=== PATIENT | female | born 1995 | race Caucasian/White ===

== ENCOUNTER 2021-11-27 12:17 | Outpatient (CLI) | payer OTHER | END 2021-11-27 12:44 | disposition home or self-care (01) | LOC: LAB 12:17 | DX: E06.3 Autoimmune thyroiditis (principal); U07.1 COVID-19; N39.0 Urinary tract infection, site not specified; J12.82 Pneumonia due to coronavirus disease 2019; Z11.52 Encounter for screening for COVID-19; Z20.822 Contact with and (suspected) exposure to COVID-19; D64.9 Anemia, unspecified; E78.2 Mixed hyperlipidemia; E03.9 Hypothyroidism, unspecified; E11.9 Type 2 diabetes mellitus without complications; E55.9 Vitamin D deficiency, unspecified ==

== ENCOUNTER 2021-12-16 07:53 | Outpatient (CLI) | payer OTHER | END 2021-12-16 08:05 | disposition home or self-care (01) | LOC: SONOGRAMA 07:53 | PROVIDERS: ATTEND Internal Medicine Hematology & Oncology | DX: K76.0 Fatty (change of) liver, not elsewhere classified (principal); E04.9 Nontoxic goiter, unspecified ==

== ENCOUNTER 2021-12-16 08:34 | Outpatient (CLI) | payer OTHER | END 2021-12-16 12:31 | disposition home or self-care (01) | LOC: LAB 08:34 | PROVIDERS: ATTEND Internal Medicine Hematology & Oncology | DX: C81.90 Hodgkin lymphoma, unspecified, unspecified site (principal); M06.9 Rheumatoid arthritis, unspecified; D89.2 Hypergammaglobulinemia, unspecified ==

== ENCOUNTER 2022-06-29 10:25 | Outpatient (CLI) | payer OTHER | END 2022-06-29 10:26 | disposition home or self-care (01) | LOC: LAB 10:25 | PROVIDERS: ATTEND Internal Medicine Hematology & Oncology | DX: C81.90 Hodgkin lymphoma, unspecified, unspecified site (principal); E55.9 Vitamin D deficiency, unspecified; E03.9 Hypothyroidism, unspecified; E78.00 Pure hypercholesterolemia, unspecified; I10 Essential (primary) hypertension; R31.9 Hematuria, unspecified; M06.9 Rheumatoid arthritis, unspecified; D70.9 Neutropenia, unspecified ==

== ENCOUNTER 2022-07-14 08:35 | Outpatient (CLI) | payer OTHER | END 2022-07-14 08:36 | disposition home or self-care (01) | LOC: NUCLEAR 08:35 | PROVIDERS: ATTEND Internal Medicine Hematology & Oncology | DX: C81.90 Hodgkin lymphoma, unspecified, unspecified site (principal) | CPT/HCPCS: 78816; A9552 ==

== ENCOUNTER 2022-07-20 09:58 | Outpatient (CLI) | payer OTHER | END 2022-07-20 10:03 | disposition home or self-care (01) | LOC: SONOGRAMA 09:58 | PROVIDERS: ATTEND Pathology Anatomic Pathology | DX: E04.1 Nontoxic single thyroid nodule (principal) ==

== ENCOUNTER 2023-03-17 15:23 | Outpatient (CLI) | payer OTHER | END 2023-03-17 15:36 | disposition home or self-care (01) | LOC: LAB 15:23 | DX: E03.8 Other specified hypothyroidism (principal); E04.2 Nontoxic multinodular goiter ==

== ENCOUNTER 2023-03-25 10:28 | Outpatient (CLI) | payer OTHER | END 2023-03-25 10:51 | disposition home or self-care (01) | LOC: SONOGRAMA 10:28 | PROVIDERS: ATTEND Internal Medicine Endocrinology, Diabetes & Metabolism | DX: E04.2 Nontoxic multinodular goiter (principal); E03.8 Other specified hypothyroidism ==

== ENCOUNTER 2024-01-13 08:10 | Outpatient (CLI) | payer OTHER | END 2024-01-13 08:12 | disposition home or self-care (01) | LOC: NUCLEAR 08:10 | PROVIDERS: ATTEND Internal Medicine Hematology & Oncology | DX: C81.98 Hodgkin lymphoma, unspecified, lymph nodes of multiple sites (principal) ==